=== PATIENT | male | born 1990 | race Caucasian/White ===

== ENCOUNTER 2018-09-20 12:38 | Emergency (ER) | payer OTHER ==
[2018-09-20 12:42] VITALS: RESP 18
[2018-09-20] MEDS ORDERED: SODIUM CHLORIDE 0.9% 1,000 ML IV STA (13:08)
--- NOTE | 2018-09-20 13:32 | ED ---
Abdominal Pain HPI - General Chief Complaint: Abdominal Pain Stated Complaint: Poss hernia Time Seen by Provider: 09/20/18 12:46 Source: patient, RN notes reviewed Mode of arrival: ambulatory Limitations: no limitations - History of Present Illness Initial Comments: 28-year-old male presents emergency Department with chief complaint of right groin pain, right lower abdominal pain. Patient states she has to sit decided of the pain is much worse at the site. Patient states that he believes he has a hernia. He has no dysuria no hematuria he's had ongoing chronic diarrhea which she's never been evaluated for. Patient states she's had no fevers chills no nausea vomiting chest pain or shortness breath. Patient was concern of the pain was worse than ever been today and is improved at this time though - Related Data Home Medications Medication Instructions Recorded Confirmed No Known Home Medications 09/20/18 09/20/18 Allergies Allergy/AdvReac Type Severity Reaction Status Date / Time No Known Allergies Allergy Verified 09/20/18 13:06 Review of Systems ROS Statement: Those systems with pertinent positive or pertinent negative responses have been documented in the HPI. ROS Other: All systems not noted in ROS Statement are negative. Past Medical History Past Medical History: No Reported History History of Any Multi-Drug Resistant Organisms: None Reported Past Surgical History: No Surgical Hx Reported Past Psychological History: ADD/ADHD Smoking Status: Current every day smoker Past Alcohol Use History: None Reported Past Drug Use History: Marijuana General Exam Limitations: no limitations General appearance: alert, in no apparent distress Head exam: Present: atraumatic, normocephalic, normal inspection Neck exam: Present: normal inspection. Absent: tenderness, meningismus, lymphad enopathy Respiratory exam: Present: normal lung sounds bilaterally. Absent: respiratory distress, wheezes, rales, rhonchi, stridor Cardiovascular Exam: Present: regular rate, normal rhythm, normal heart sounds. Absent: systolic murmur, diastolic murmur, rubs, gallop, clicks GI/Abdominal exam: Present: soft, tenderness, normal bowel sounds. Absent: distended, guarding, rebound, rigid Back exam: Absent: CVA tenderness (R), CVA tenderness (L) Neurological exam: Present: alert, oriented X3, CN II-XII intact Skin exam: Present: warm, dry, intact, normal color. Absent: rash Course Vital Signs 09/20/18 09/20/18 12:39 13:57 Temperature 97.5 F L Pulse Rate 91 75 Respiratory 18 18 Rate Blood Pressure 117/82 115/76 O2 Sat by Pulse 98 98 Oximetry Medical Decision Making - Medical Decision Making 28-year-old male presented for right lower abdominal pain. Patient did have labs and CT CT shows evidence of inguinal hernia only containing fat this time. Patient CT does not reveal any evidence of acute sinusitis. Patient will be discharged with follow-up with surgery return parameters were discussed. - Lab Data Result diagrams: 09/20/18 13:25 09/20/18 13:25 Lab Results 09/20/18 09/20/18 Range/Units 13:25 13:25 WBC 7.9 (3.8-10.6) k/uL RBC 5.08 (4.30-5.90) m/uL Hgb 14.9 (13.0-17.5) gm/dL Hct 42.9 (39.0-53.0) % MCV 84.5 (80.0-100.0) fL MCH 29.3 (25.0-35.0) pg MCHC 34.7 (31.0-37.0) g/dL RDW 13.9 (11.5-15.5) % Plt Count 147 L (150-450) k/uL Neutrophils % 73 % Lymphocytes % 17 % Monocytes % 6 % Eosinophils % 2 % Basophils % 0 % Neutrophils # 5.7 (1.3-7.7) k/uL Lymphocytes # 1.4 (1.0-4.8) k/uL Monocytes # 0.5 (0-1.0) k/uL Eosinophils # 0.2 (0-0.7) k/uL Basophils # 0.0 (0-0.2) k/uL Sodium 139 (137-145) mmol/L Potassium 4.2 (3.5-5.1) mmol/L Chloride 107 (98-107) mmol/L Carbon Dioxide 24 (22-30) mmol/L Anion Gap 8 mmol/L BUN 10 (9-20) mg/dL Creatinine 0.87 (0.66-1.25) mg/dL Est GFR (CKD-EPI)AfAm >90 (>60 ml/min/1.73 sqM) Est GFR (CKD-EPI)NonAf >90 (>60 ml/min/1.73 sqM) Glucose 100 H (74-99) mg/dL Calcium 9.4 (8.4-10.2) mg/dL Total Bilirubin 0.6 (0.2-1.3) mg/dL AST 21 (17-59) U/L ALT 22 (21-72) U/L Alkaline Phosphatase 68 (38-126) U/L Total Protein 6.7 (6.3-8.2) g/dL Albumin 4.3 (3.5-5.0) g/dL Lipase 116 (23-300) U/L Disposition Clinical Impression: Right inguinal hernia Disposition: HOME SELF-CARE Condition: Stable Instructions (If sedation given, give patient instructions): Inguinal Hernia (ED) Additional Instructions: Please return to the Emergency Department if symptoms worsen or any other concerns. Is patient prescribed a controlled substance at d/c from ED?: No Referrals: Romulo Cooney MD [STAFF PHYSICIAN] - 1-2 days Time of Disposition: 14:36
[2018-09-20 13:45] LABS: ALT 22 U/L (21-72); AST 21 U/L (17-59); African American GFR (CKD) >90 (>60 ml/min/1.73 sqM); Albumin 4.3 g/dL (3.5-5.0); Alkaline Phosphatase 68 U/L (38-126); Anion Gap 8 mmol/L; Blood Urea Nitrogen 10 mg/dL (9-20); Calcium 9.4 mg/dL (8.4-10.2); Carbon Dioxide 24 mmol/L (22-30); Chloride 107 mmol/L (98-107); Glucose 100 mg/dL (74-99); Lipase 116 U/L (23-300); Potassium 4.2 mmol/L (3.5-5.1); Sodium 139 mmol/L (137-145); Total Bilirubin 0.6 mg/dL (0.2-1.3); Total Protein 6.7 g/dL (6.3-8.2)
[2018-09-20 13:50] LABS: Basophils % (A) 0 %; Eosinophils # (A) 0.2 k/uL (0-0.7); Eosinophils % (A) 2 %; HCT 42.9 % (39.0-53.0); HGB 14.9 gm/dL (13.0-17.5); Lymphocytes # (A) 1.4 k/uL (1.0-4.8); Lymphocytes % (A) 17 %; MCH 29.3 pg (25.0-35.0); MCHC 34.7 g/dL (31.0-37.0); MCV 84.5 fL (80.0-100.0); Mean Platelet Volume 9.8; Monocytes # (A) 0.5 k/uL (0-1.0); Monocytes % (A) 6 %; Neutrophils # (A) 5.7 k/uL (1.3-7.7); Neutrophils % (A) 73 %; Platelet Count 147 k/uL (150-450); RBC 5.08 m/uL (4.30-5.90); RDW 13.9 % (11.5-15.5); WBC 7.9 k/uL (3.8-10.6)
--- NOTE | 2018-09-20 14:27 | CT ---
EXAMINATION TYPE: CT abdomen pelvis w con DATE OF EXAM: 09/20/2018 COMPARISON: None INDICATION: Right sided bulging and bowel changes DLP: 780.1 mGycm, Automated exposure control for dose reduction was used. CONTRAST: 100 mL of Isovue 300. Study performed without Oral Contrast TECHNIQUE: Axial images were obtained from above the diaphragm to the pubic rami in the axial plane a t 5 mm thick sections. Reconstructed images are reviewed on the computer in the coronal plane. FINDINGS: Limited CT sections are obtained the lung bases. The lung bases are clear. CT ABDOMEN: Liver: There is a 1.1 cm cyst measuring 1 Hounsfield unit and lateral margin of the left lobe liver. Within the posterior caudate head is a 1.1 cm cyst measuring 11 Hounsfield units. Spleen: Normal Pancreas: Normal Adrenal glands: The adrenal glands are normal. Gallbladder: Normal Kidneys: No masses are evident. No hydronephrosis is present. No cysts are present. Delayed images were obtained through the kidneys, which remain unremarkable. Aorta: Normal Inferior vena cava: Normal. CT PELVIS: Soft fat extends into the right inguinal ring. No loops of bowel are evident. Loops of bowel within the abdomen and pelvis are normal. This study is performed in lateral contr ast limiting bowel evaluation. Appendix: Normal as visualized. Urinary bladder: Normal. Genitourinary structures: Osseous structures: No suspicious lytic or sclerotic lesions. IMPRESSIONS: 1. Small fat-containing right inguinal hernia 2. Hepatic cysts
[2018-09-20 14:52] LABS: Appearance,Urine Clear (Clear); Bilirubin,Urine Negative (Negative); Blood,Urine Negative (Negative); Color,Urine Light Yellow; Glucose,Urine (UA) Negative (Negative); Ketones,Urine Negative (Negative); Leukocyte Esterase,Urine Negative (Negative); Nitrite,Urine Negative (Negative); PH, Urine 6.5 (5.0-8.0); Protein,Urine Negative (Negative); Specific Gravity,Urine 1.035 (1.001-1.035); Urobilinogen,Urine <2.0 mg/dL (<2.0)
[2018-09-20 15:01] VITALS: BP 110/72; PULSE 71; TEMP 98.4
== END 2018-09-20 15:00 | disposition home or self-care (01) ==
LOC: EC 12:38
DX: K40.90 Unilateral inguinal hernia, without obstruction or gangrene, not specified as recurrent (principal); K52.9 Noninfective gastroenteritis and colitis, unspecified; F17.200 Nicotine dependence, unspecified, uncomplicated
CPT/HCPCS: 36415; 80053; 83690; 85025; 81003; 74177; 99284; 96360; Q9967

== ENCOUNTER 2019-03-09 00:11 | Emergency (ER) | payer OTHER ==
--- NOTE | 2019-03-09 00:42 | ED ---
Chest Pain HPI - General Stated Complaint: Chest Pain Time Seen by Provider: 03/09/19 00:20 - History of Present Illness Initial Comments: This patient is a 28-year-old man who presents as a transfer from [facility]. The patient had gone there tonight to be seen about pain to the chest, just to the left of his sternum area he states that he has been having episodes of pain like this going back approximately one month now. He describes the pain as a tight feeling. He states that tonight it was moderate intensity. The pain is intermittent, and he states that it lasts a variable amount of time when it comes on from minutes to hours. The patient had gone to [facility] on March 05 for similar pain, he had a workup there that included EKG, chest x-ray, and 2 sets of troponins that were negative. The patient went home, but when factor tonight when the pain came on again. The patient had workup there which again had negative cardiac enzymes but he did have relief of his symptoms with sublingual nitroglycerin, and he is transferred here to have admission for cardiology consultation. When I interview the patient, he does not have any symptoms. Patient denies any anginal type symptoms, no dyspnea, diaphoresis, nausea or vomiting, palpitations, lightheadedness or syncope. The patient states that he had quit smoking 1 week ago prior to that he was smoking approximately half pack of cigarettes per day. Patient denies family history of any cardiac disease. MD Complaint: chest pain Onset/Timin -: month(s) Onset: during rest Pain Location: substernal, left chest Pain Radiation: LUE Severity: moderate Quality: tightness Consistency: intermittent Improves With: nitroglycerin Worsens With: nothing Treatments Prior to Arrival: aspirin, nitroglycerin, oxygen - Related Data Home Medications Medication Instructions Recorded Confirmed No Known Home Medications 09/20/18 09/20/18 Allergies Allergy/AdvReac Type Severity Reaction Status Date / Time No Known Allergies Allergy Verified 09/20/18 13:06 Review of Systems ROS Statement: Those systems with pertinent positive or pertinent negative responses have been documented in the HPI. ROS Other: All systems not noted in ROS Statement are negative. Constitutional: Denies: fever, chills Respiratory: Denies: cough, dyspnea Cardiovascular: Reports: as per HPI, chest pain. Denies: palpitations, orthopnea, edema, syncope Gastrointestinal: Denies: abdominal pain, nausea, vomiting Genitourinary: Denies: dysuria, hematuria Musculoskeletal: Denies: back pain Skin: Denies: rash Neurological: Denies: headache, weakness, numbness EKG Findings - EKG Results: EKG: interpreted by KVNG, sinus rhythm (Rate 77 bpm), normal axis, normal QRS, normal ST/T Past Medical History Past Medical History: No Reported History History of Any Multi-Drug Resistant Organisms: None Reported Past Surgical History: No Surgical Hx Reported Past Psychological History: ADD/ADHD Smoking Status: Current every day smoker Past Alcohol Use History: None Reported Past Drug Use History: Marijuana General Exam General appearance: alert, in no apparent distress Head exam: Present: atraumatic, normocephalic Eye exam: Present: normal appearance ENT exam: Present: normal oropharynx Respiratory exam: Present: normal lung sounds bilaterally. Absent: respiratory distress, wheezes, rales, rhonchi, stridor, chest wall tenderness, accessory muscle use Cardiovascular Exam: Present: regular rate, normal rhythm, normal heart sounds. Absent: systolic murmur, diastolic murmur, rubs, gallop GI/Abdominal exam: Present: soft. Absent: distended, tenderness, guarding, rigid, mass Extremities exam: Present: normal inspection, normal capillary refill. Absent: pedal edema, calf tenderness Back exam: Present: normal inspection. Absent: CVA tenderness (R), CVA tenderness (L) Neurological exam: Present: alert Skin exam: Present: warm, dry, intact, normal color. Absent: rash Course Vital Signs 03/09/19 00:41 Temperature 98.7 F Pulse Rate 80 Respiratory 18 Rate Blood Pressure 109/69 O2 Sat by Pulse 98 Oximetry Disposition Clinical Impression: Chest pain Disposition: HOME SELF-CARE Condition: Good Instructions (If sedation given, give patient instructions): Chest Pain (ED) Is patient prescribed a controlled substance at d/c from ED?: No Referrals: Nonstaff,Physician [REFERRING] - 1-2 days Ravinder Abraham MD [STAFF PHYSICIAN] - 1-2 days
[2019-03-09 00:43] VITALS: RESP 18; TEMP 98.7
[2019-03-09 02:05] VITALS: BP 113/75; PULSE 85
== END 2019-03-09 02:00 | disposition home or self-care (01) ==
LOC: EC 00:11
DX: R07.9 Chest pain, unspecified (principal); F17.200 Nicotine dependence, unspecified, uncomplicated
CPT/HCPCS: 36415; 84484; 93005; 99285

== ENCOUNTER 2019-03-11 18:06 | Observation (INO) | payer OTHER ==
--- NOTE | 2019-03-11 18:27 | ED ---
Chest Pain HPI - General Chief Complaint: Chest Pain Stated Complaint: chest pain Time Seen by Provider: 03/11/19 18:14 Source: patient, RN notes reviewed, old records reviewed Mode of arrival: ambulatory Limitations: no limitations - History of Present Illness Initial Comments: This is a 28-year-old male here for evaluation presents for recurrent evaluation of chest pain. Patient has recent history of chest pain and evaluation multiple different ERs as well as observation for cardiac evaluation he did not stay for cardiac evaluation left prior to evaluation. Also last week. Patient currently is again having chest pain left sided chest pain with nausea dizziness and shortness of breath. Jaw pain left arm pain MD Complaint: chest pain -: days(s) Onset: during rest, during exertion Pain Location: left chest Pain Radiation: LUE, jaw/teeth Severity: moderate Severity scale (1-10): 4 Quality: tightness, heaviness Consistency: intermittent Improves With: nothing Worsens With: nothing Anginal Symptoms: diaphoresis, dyspnea Treatments Prior to Arrival: none - Related Data Home Medications Medication Instructions Recorded Confirmed No Known Home Medications 09/20/18 09/20/18 Allergies Allergy/AdvReac Type Severity Reaction Status Date / Time No Known Allergies Allergy Verified 03/11/19 18:08 Review of Systems ROS Statement: Those systems with pertinent positive or pertinent negative responses have been documented in the HPI. ROS Other: All systems not noted in ROS Statement are negative. EKG Findings - EKG Comments: EKG Findings:: EKG shows sinus rhythm rate of 82, NC 164, QRS 90, QTC 401 Past Medical History Past Medical History: Chest Pain / Angina History of Any Multi-Drug Resistant Organisms: None Reported Past Surgical History: No Surgical Hx Reported Past Psychological History: ADD/ADHD Smoking Status: Former smoker Past Alcohol Use History: None Reported Past Drug Use History: Marijuana General Exam Limitations: no limitations General appearance: alert, in no apparent distress Head exam: Present: atraumatic, normocephalic, normal inspection Eye exam: Present: normal appearance, PERRL, EOMI. Absent: scleral icterus, conjunctival injection, periorbital swelling ENT exam: Present: normal exam, mucous membranes moist Neck exam: Present: normal inspection. Absent: tenderness, meningismus, lymphadenopathy Respiratory exam: Present: normal lung sounds bilaterally. Absent: respiratory distress, wheezes, rales, rhonchi, stridor Cardiovascular Exam: Present: regular rate, normal rhythm, normal heart sounds. Absent: systolic murmur, diastolic murmur, rubs, gallop, clicks GI/Abdominal exam: Present: soft, normal bowel sounds. Absent: distended, tenderness, guarding, rebound, rigid Extremities exam: Present: normal inspection, full ROM, normal capillary refill. Absent: tenderness, pedal edema, joint swelling, calf tenderness Back exam: Present: normal inspection Neurological exam: Present: alert, oriented X3, CN II-XII intact Psychiatric exam: Present: normal affect, normal mood Skin exam: Present: warm, dry, intact, normal color. Absent: rash Course Vital Signs 03/11/19 18:08 Temperature 98 F Pulse Rate 55 L Respiratory 18 Rate Blood Pressure 134/80 O2 Sat by Pulse 97 Oximetry - Reevaluation(s) Reevaluation #1: 03/11/19 18:25 Medical record is reviewed Reevaluation #2: 03/11/19 18:25 Patient is in no acute distress, patient does have recent evaluation both that make urine and then was transferred from [facility] for cardiac observation patient signed out prior to stress test Reevaluation #3: 03/11/19 18:26 Patient is currently without any chest pain - Consultations Consultation #1: spoke w Dr Russ zheng for admission Chest Pain MDM - MDM 28 male will be admitted for observation cardiac observation, patient with continued pain Disposition Clinical Impression: Chest pain Disposition: ADMITTED IP TO THIS HOSP Condition: Undetermined Instructions (If sedation given, give patient instructions): Chest Pain (ED) Is patient prescribed a controlled substance at d/c from ED?: No Referrals: Abhishek Boothe MD [Primary Care Provider] - 1-2 days
[2019-03-11] MEDS ORDERED: NITROGLYCERIN SL TABS 0.4 MG TAB SUBLINGUAL PRN (18:48)
[2019-03-11 19:13] LABS: Basophils % (A) 0 %; Eosinophils # (A) 0.2 k/uL (0-0.7); Eosinophils % (A) 3 %; HCT 41.7 % (39.0-53.0); HGB 14.6 gm/dL (13.0-17.5); Lymphocytes # (A) 1.3 k/uL (1.0-4.8); Lymphocytes % (A) 24 %; MCH 30.1 pg (25.0-35.0); MCHC 34.9 g/dL (31.0-37.0); MCV 86.2 fL (80.0-100.0); Mean Platelet Volume 9.4; Monocytes # (A) 0.3 k/uL (0-1.0); Monocytes % (A) 6 %; Neutrophils # (A) 3.5 k/uL (1.3-7.7); Neutrophils % (A) 65 %; Platelet Count 168 k/uL (150-450); RBC 4.84 m/uL (4.30-5.90); WBC 5.4 k/uL (3.8-10.6)
[2019-03-11 19:26] LABS: INR 0.9 (<1.2); Partial Thromboplastin Time 23.6 sec (22.0-30.0); Prothrombin Time 10.1 sec (9.0-12.0)
[2019-03-11 19:28] LABS: ALT 22 U/L (4-49); AST 23 U/L (17-59); African American GFR (CKD) >90 (>60 ml/min/1.73 sqM); Albumin 4.4 g/dL (3.5-5.0); Alkaline Phosphatase 78 U/L (38-126); Anion Gap 9 mmol/L; Blood Urea Nitrogen 18 mg/dL (9-20); Calcium 9.6 mg/dL (8.4-10.2); Carbon Dioxide 25 mmol/L (22-30); Chloride 104 mmol/L (98-107); Glucose 148 mg/dL (74-99); Magnesium 2.1 mg/dL (1.6-2.3); Non-African American GFR(CKD) >90 (>60 ml/min/1.73 sqM); Potassium 3.7 mmol/L (3.5-5.1); Sodium 138 mmol/L (137-145); Total Bilirubin 0.5 mg/dL (0.2-1.3); Total Protein 6.9 g/dL (6.3-8.2)
[2019-03-11] MEDS: SODIUM CHLORIDE 0.9% 1,000 ML IV SCH (22:05)
[2019-03-12] MEDS: SODIUM CHLORIDE 0.9% 1,000 ML IV SCH (05:39)
[2019-03-12 07:06] VITALS: RESP 18
[2019-03-12 07:39] LABS: Cholesterol 167 mg/dL (<200); HDL Cholesterol 50 mg/dL (40-60); LDL Cholesterol,Calculated 93 mg/dL (0-99); Triglycerides 118 mg/dL (<150)
--- NOTE | 2019-03-12 08:49 | XR ---
EXAMINATION TYPE: XR chest 2V DATE OF EXAM: 03/12/2019 COMPARISON: 03/08/2019 HISTORY: 28-year-old male with chest pain TECHNIQUE: PA and lateral views FINDINGS: The cardiomediastinal silhouette, aorta, and pulmonary vasculature are within normal limits. Lungs an d pleural spaces are clear. IMPRESSION: No acute cardiopulmonary process.
[2019-03-12] MEDS ORDERED: ATORVASTATIN 80 MG TAB PO SCH (09:00)
[2019-03-12] MEDS ORDERED: ASPIRIN 325 MG TAB PO SCH (09:00)
[2019-03-12 12:04] VITALS: BP 126/77; PULSE 69; TEMP 97.9
--- NOTE | 2019-03-12 13:38 | ECHOF ---
Referral Reason:cp MEASUREMENTS -------- HEIGHT: 170.2 cm WEIGHT: 77.1 kg BP: RVIDd: 2.6 cm (< 3.3) IVSd: 1.1 cm (0.6 - 1.1) LVIDd: 3.5 cm (3.9 - 5.3) LVPWd: 1.2 cm (0.6 - 1.1) IVSs: 1.7 cm LVIDs: 1.5 cm LVPWs: 1.8 cm Ao Diam: 3.0 cm (2.0 - 3.7) AV Cusp: 2.3 cm (1.5 - 2.6) LA Diam: 2.7 cm (2.7 - 3.8) MV EXCURSION: 12.148 mm (> 18.000) MV EF SLOPE: 92 mm/s (70 - 150) EPSS: 0.2 cm MV E Charles: 0.83 m/s MV DecT: 201 ms MV A Charles: 0.43 m/s MV E/A Ratio: 1.92 RAP: 5.00 mmHg RVSP: 12.51 mmHg FINDINGS -------- Sinus rhythm. This was a technically good study. The left ventricular size is normal. There is mild concentric left ventricular hypertrophy. Overa ll left ventricular systolic function is normal with, an EF between 55 - 60 %. The diastolic fillin g pattern is normal for the age of the patient 9.37. The right ventricle is normal in size. The left atrial size is normal. The right atrial size is normal. The aortic valve is trileaflet and appears structurally normal. The mitral valve is normal. The mitral valve leaflets are mildly thickened. There is trace mitral regurgitation. The tricuspid valve appears structurally normal. Trace tricuspid regurgitation present. Right izzy tricular systolic pressure is normal at < 35 mmHg. There is no pulmonic regurgitation present. The aortic root size is normal. Normal inferior vena cava with normal inspiratory collapse consistent with estimated right atrial pre ssure of 5 mmHg. There is no pericardial effusion. CONCLUSIONS -------- 1. Sinus rhythm. 2. This was a technically good study. 3. The left ventricular size is normal. 4. There is mild concentric left ventricular hypertrophy. 5. Overall left ventricular systolic function is normal with, an EF between 55 - 60 %. 6. The diastolic filling pattern is normal for the age of the patient 9.37 7. The right ventricle is normal in size. 8. The left atrial size is normal. 9. The right atrial size is normal. 10. The aortic valve is trileaflet and appears structurally normal. 11. The mitral valve is normal. 12. The mitral valve leaflets are mildly thickened. 13. There is trace mitral regurgitation. 14. The tricuspid valve appears structurally normal. 15. Trace tricuspid regurgitation present. 16. Right ventricular systolic pressure is normal at < 35 mmHg. 17. There is no pulmonic regurgitation present. 18. The aortic root size is normal. 19. Normal inferior vena cava with normal inspiratory collapse consistent with estimated right atrial pressure of 5 mmHg. 20. There is no pericardial effusion. AGRICULTURAL RESEARCH TECHNOLOGIST: Amarilis Melvin RDCS
[2019-03-12] MEDS ORDERED: PANTOPRAZOLE 40 MG TABLET PO STA ×2 (14:45→14:51)
--- NOTE | 2019-03-12 15:39 | CONS ---
CONSULTATION CHIEF COMPLAINT: Chest pain. Lico is a 28-year-old gentleman with no significant past medical history who presents to hospital complaining of chest pain. He describes it as intermittent episodes of precordial chest pressure with left arm discomfort that usually lasts for a minute or two and then resolves on its own. It is mild intensity, unrelated to exertion, associated with diaphoresis. There were no clear-cut relieving or exacerbating factors. Since being admitted, he has had similar symptoms. EKG did not reveal any ischemic changes and cardiac enzymes have been negative. 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 I obtained a D- dimer on him that is within normal limits. I am going to obtain a 2D echo to assess LV function and wall motion. If this workup is unremarkable, he can be discharged home and have an outpatient stress test. PAST MEDICAL HISTORY: Negative for hypertension, diabetes, dyslipidemia. MEDICATIONS: Include aspirin. ALLERGIES: No known drug allergies. FAMILY HISTORY: Significant for premature coronary artery disease. SOCIAL HISTORY: Significant for smoking. There is no history of EtOH abuse or drug abuse. REVIEW OF SYSTEMS: HEENT: Unremarkable. CARDIAC: As described above. RESPIRATORY: Negative. GI: Negative. GENITOURINARY: Negative. ALLERGY/IMMUNOLOGY: Negative. SKIN: Negative. MUSCULOSKELETAL: Significant for history of hernia surgery 5 months ago. PSYCHOSOCIAL: Negative. ENDOCRINE: Negative. DERM: Negative. CONSTITUTIONAL: Negative. ONCOLOGICAL: Negative. Rest of the system review is not relevant. On exam, patient is comfortable at rest. Vital signs are stable. There is no jugular venous distention. Carotid upstroke is normal. There is no bruit. Chest exam reveals good air entry bilaterally. Heart exam reveals first and second heart sounds. No gallop. No murmur. No rub. Abdomen is soft, nontender. Exam of extremities did not reveal any edema. Peripheral pulses are felt. ELECTRIC RANGE PREPARER exam did not reveal focal neurological deficits. LABS: Show a hemoglobin of 14.6, platelet count is 168, potassium is 3.7, creatinine is 1. Three sets of troponins are negative. LDL is 93. ASSESSMENT: Chest pain, atypical in nature. Myocardial infarction is ruled out. EKG looks normal. I will ambulate the patient and if he is free of symptoms, he can be discharged home and arrange for an outpatient stress test. I will do an echo on him on this admission. MMODL / IJN: [id number] /
--- NOTE | 2019-03-12 17:39 | P.HPIM ---
History of Present Illness H&P Date: 03/12/19 Chief Complaint: Chest pain Patient is a 28-year-old male with a known history of ADD/ADHD, previous history of smoking, marijuana use and recent history of hernia repair about few months back came to ER the complains of chest pain. Chest pain is mainly left upper retrosternal and radiating up to the left shoulder. No associated nausea vomiting. Patient says that she does have shortness of breath along with the pain. Pain is on and off pressure-like sensation. No diaphoresis. Denied any history of prior coronary artery disease. Patient thought he has been having heart problems and started taking aspirin daily. Denied any cough or sputum production. No fever no chills. Patient does smoke an daily basis otherwise. He does use marijuana as well. Chest x-ray showed no acute cardio pulmonary process All other laboratory data reviewed. No leukocytosis. D-dimer is not elevated. Troponin 3 negative EKG showed normal sinus rhythm. No ST-T wave changes. Patient has recent history of chest pain and evaluation multiple different ERs as well as observation for cardiac evaluation he did not stay for cardiac evaluation left prior to evaluation Review of Systems Constitutional: Patient denies any fever or chills . No generalized weakness or weight loss. Abdomen: Patient denied nausea vomiting and diarrhea and abdominal pain. Cardiovascular: Patient does have chest pain and short of breath no palpitatio ns. Respiratory: patient denied any cough is from production. No shortness of breath Neurologic: Patient denied any numbness or tingling headache. Musculoskeletal: Patient denies any complaints of joint swelling or deformity. Skin: Negative Psychiatric: Negative Endocrine: No heat or cold intolerance. No recent weight gain. Genitourinary: No dysuria or hematuria. All other 14 point ROS negative except the above Past Medical History Past Medical History: Chest Pain / Angina History of Any Multi-Drug Resistant Organisms: None Reported Past Surgical History: Hernia Repair Additional Past Surgical History / Comment(s): Hernia repair with mesh Past Anesthesia/Blood Transfusion Reactions: No Reported Reaction Past Psychological History: ADD/ADHD Smoking Status: Former smoker Past Alcohol Use History: None Reported Past Drug Use History: Marijuana Medications and Allergies Home Medications Medication Instructions Recorded Confirmed Type Aspirin EC [Ecotrin Low Dose] 81 mg PO DAILY 03/11/19 03/11/19 History Pantoprazole Sodium [Protonix] 40 mg PO -PIAT #30 tablet.dr 03/12/19 Rx Allergies Allergy/AdvReac Type Severity Reaction Status Date / Time No Known Allergies Allergy Verified 03/11/19 19:49 Physical Exam Vitals: Vital Signs Temp Pulse Pulse Resp BP BP Pulse Ox 03/12/19 08:00 77 18 03/12/19 07:05 97.5 F L 77 18 117/77 98 03/12/19 04:00 98.0 F 73 16 122/79 100 03/12/19 03:46 84 15 03/11/19 23:45 98.2 F 84 16 124/78 98 03/11/19 21:32 98.0 F 82 17 134/93 98 03/11/19 20:30 17 03/11/19 19:54 98.0 F 87 18 116/93 96 03/11/19 18:08 98 F 55 L 18 134/80 97 Intake and Output 03/11/19 03/12/19 03/12/19 22:59 06:59 14:59 Intake Total 480 240 Balance 480 240 Intake: Oral 480 240 Other: Voiding Method Toilet # Voids 1 Weight 77.111 kg PHYSICAL EXAMINATION: Patient is lying in the bed comfortably, no acute distress, awake alert and oriented.. HEENT: Normocephalic. Neck is supple. Pupils reactive. Nostrils clear. Oral cavi ty is moist. Ears reveal no drainage. Neck reveals no JVD, carotid bruits, or thyromegaly. CHEST EXAMINATION: Trachea is central. Symmetrical expansion. Lung pereira clear to auscultation and percussion. Denied any chest wall tenderness. CARDIAC: Normal S1, S2 with no gallops. No murmurs ABDOMEN: Soft. Bowel sounds normal. No organomegaly. No abdominal bruits. Extremities: reveal no edema. No clubbing or cyanosis Neurologically awake, alert, oriented x3 with well-coordinated movements. No focal deficits noted Skin: No rash or skin lesions. Psychiatric: Coperative. Nonsuicidal Musculoskeletal: No joint swelling or deformity. Normal range of motion. Results CBC & Chem 7: 03/11/19 18:58 03/11/19 18:58 Labs: Abnormal Lab Results - Last 24 Hours (Table) 03/11/19 Range/Units 18:58 Glucose 148 H (74-99) mg/dL Thrombosis Risk Factor Assmnt - DVT/VTE Prophylaxis DVT/VTE Prophylaxis: Pharmacologic Prophylaxis ordered - Choose All That Apply Any of the Below Risk Factors Present?: No Other Risk Factors: No Other congenital or acquired thrombophilia - If yes, enter type in comment: No Thrombosis Risk Factor Assessment Level: Very Low Risk Assessment and Plan Assessment: Atypical chest pain. Ruled out acute coronary syndrome. Ongoing nicotine addiction and marijuana use ADD/ADHD Recent history of hernia repair. DVT prophylaxis Plan: Next and patient be continued on telemetry monitoring. Serial EKG and troponin 3 negative. D-dimer is not elevated. 2-D echocardiogram was ordered. Showed no pericardial effusion heart acute pericarditis. Patient will be started on Protonix and that must follow-up as an outpatient. Currently patient denied any complaints of chest pain. Smoking cessation and marijuana use has been counseled extensively. Time with Patient: Greater than 30
--- NOTE | 2019-03-12 17:42 | P.DS ---
Providers Date of admission: 03/11/19 18:50 Expected date of discharge: 03/12/19 Attending physician: Patricia Karimi Consults: 03/11/19 18:48 Consult Physician Urgent Consulting Provider: Flakita Downing Consult Reason/Comments: cp Do you want consulting provider notified?: Yes Primary care physician: Abhishek Boothe Hospital Course: Discharge diagnosis Atypical chest pain. Ruled out acute coronary syndrome. Possible gastritis versus GERD Ongoing nicotine addiction and marijuana use ADD/ADHD Recent history of hernia repair. DVT prophylaxis Hospital course Patient is a 28-year-old male with a known history of ADD/ADHD, previous history of smoking, marijuana use and recent history of hernia repair about few months back came to ER the complains of chest pain. Chest pain is mainly left upper retrosternal and radiating up to the left shoulder. No associated nausea vomiting. Patient says that she does have shortness of breath along with the pain. Pain is on and off pressure-like sensation. No diaphoresis. Denied any history of prior coronary artery disease. Patient thought he has been having heart problems and started taking aspirin daily. Denied any cough or sputum production. No fever no chills. Patient does smoke an daily basis otherwise. He does use marijuana as well. Chest x-ray showed no acute cardio pulmonary process All other laboratory data reviewed. No leukocytosis. D-dimer is not elevated. Troponin 3 negative EKG showed normal sinus rhythm. No ST-T wave changes. Patient has recent history of chest pain and evaluation multiple different ERs as well as observation for cardiac evaluation he did not stay for cardiac evaluation left prior to evaluation. patient was continued on telemetry monitoring. Serial EKG and troponin 3 negative. D-dimer is not elevated. 2-D echocardiogram was ordered. Showed no pericardial effusion heart acute pericarditis. Patient will be started on Protonix and that must follow-up as an outpatient. Currently patient denied any complaints of chest pain. Smoking cessation and marijuana use has been counseled extensively. PHYSICAL EXAMINATION: Patient is lying in the bed comfortably, no acute distress, awake alert and oriented.. HEENT: Normocephalic. Neck is supple. Pupils reactive. Nostrils clear. Oral cavity is moist. Ears reveal no drainage. Neck reveals no JVD, carotid bruits, or thyromegaly. CHEST EXAMINATION: Trachea is central. Symmetrical expansion. Lung pereira clear to auscultation and percussion. CARDIAC: Normal S1, S2 with no gallops. No murmurs ABDOMEN: Soft. Bowel sounds normal. No organomegaly. No abdominal bruits. Extremities: reveal no edema. No clubbing or cyanosis Neurologically awake, alert, oriented x3 with well-coordinated movements. No focal deficits noted Skin: No rash or skin lesions. Psychiatric: Coperative. Nonsuicidal Musculoskeletal: No joint swelling or deformity. Normal range of motion. Vital Signs 03/12/19 03/12/19 11:57 12:00 Temperature 97.9 F Pulse Rate [ 77 69 Right] Respiratory 18 18 Rate Blood Pressure 126/77 [Right Arm] O2 Sat by Pulse 98 Oximetry Patient Condition at Discharge: Undetermined Plan - Discharge Summary Discharge Rx Participant: No New Discharge Prescriptions: New Pantoprazole Sodium [Protonix] 40 mg PO AC-BRKFST #30 tablet. Continue Aspirin EC [Ecotrin Low Dose] 81 mg PO DAILY Discharge Medication List Aspirin EC [Ecotrin Low Dose] 81 mg PO DAILY 03/11/19 [History] Pantoprazole Sodium [Protonix] 40 mg PO AC-BRKFST #30 tablet. 03/12/19 [Rx] Follow up Appointment(s)/Referral(s): Abihshek Boothe MD [Primary Care Provider] - 1-2 days Patient Instructions/Handouts: Chest Pain (ED) Discharge Disposition: HOME SELF-CARE
== END 2019-03-12 15:20 | disposition home or self-care (01) ==
LOC: EC 18:06 → 1SOBS 18:50
PROVIDERS: ADMIT Hospitalist; ATTEND Hospitalist
DX: R07.89 Other chest pain (principal); F17.200 Nicotine dependence, unspecified, uncomplicated; F12.90 Cannabis use, unspecified, uncomplicated; F90.9 Attention-deficit hyperactivity disorder, unspecified type; I51.7 Cardiomegaly; Z79.82 Long term (current) use of aspirin; Z79.899 Other long term (current) drug therapy; Z98.890 Other specified postprocedural states
CPT/HCPCS: 93005 ×2; 99285; 36415; 93306; 85379; 83880; 80061; 80053; 83735; 84484 ×2; 85025; 85610; 85730; 71046; G0378 ×2

== ENCOUNTER 2021-04-21 15:47 | Emergency (ER) | payer OTHER ==
[2021-04-21 15:52] VITALS: TEMP 97.4
[2021-04-21] MEDS ORDERED: diphenhydrAMINE 50 MG/ML 1 ML VIAL IVP STA (16:02)
[2021-04-21] MEDS ORDERED: ONDANSETRON 4 MG/2 ML VIAL IVP STA (16:02)
[2021-04-21] MEDS ORDERED: SODIUM CHLORIDE 0.9% 1,000 ML IV STA (16:02)
[2021-04-21] MEDS ORDERED: ASPIRIN 81 MG PO STA (16:02)
[2021-04-21] MEDS ORDERED: LIDOCAINE VISCOUS 2% 15 ML CUP MUCOUS MEM ONE (16:18)
[2021-04-21] MEDS: MORPHINE SULFATE 4 MG/ML SYRINGE IV STA ×2 (16:52→17:24)
[2021-04-21 16:55] LABS: ALT 100 U/L (4-49); AST 45 U/L (17-59); African American GFR (CKD) >90 (>60 ml/min/1.73 sqM); Albumin 4.9 g/dL (3.5-5.0); Alkaline Phosphatase 86 U/L (38-126); Amylase 51 U/L (30-110); Anion Gap 9 mmol/L; Blood Urea Nitrogen 15 mg/dL (9-20); Calcium 9.5 mg/dL (8.4-10.2); Carbon Dioxide 24 mmol/L (22-30); Chloride 100 mmol/L (98-107); Glucose 98 mg/dL (74-99); Lipase 44 U/L (23-300); Non-African American GFR(CKD) >90 (>60 ml/min/1.73 sqM); Sodium 133 mmol/L (137-145); Total Bilirubin 1.2 mg/dL (0.2-1.3)
--- NOTE | 2021-04-21 16:56 | XR ---
EXAMINATION TYPE: XR chest 2V DATE OF EXAM: 04/21/2021 COMPARISON: 03/12/2019 HISTORY: Chest pain TECHNIQUE: 2 views FINDINGS: Heart and mediastinum are normal. Lungs are clear. Diaphragm is normal. Bony thorax appears normal. IMPRESSION: Normal chest. No change.
[2021-04-21 16:57] LABS: Basophils % (A) 1 %; Eosinophils # (A) 0.1 k/uL (0-0.7); Eosinophils % (A) 1 %; HCT 47.4 % (39.0-53.0); HGB 16.6 gm/dL (13.0-17.5); INR 0.9 (<1.2); Lymphocytes % (A) 26 %; MCH 30.5 pg (25.0-35.0); MCHC 35.1 g/dL (31.0-37.0); MCV 87.1 fL (80.0-100.0); Mean Platelet Volume 9.8; Monocytes # (A) 0.5 k/uL (0-1.0); Monocytes % (A) 12 %; Neutrophils # (A) 2.3 k/uL (1.3-7.7); Neutrophils % (A) 58 %; Platelet Count 158 k/uL (150-450); Prothrombin Time 10.1 sec (9.0-12.0); RBC 5.45 m/uL (4.30-5.90); RDW 12.2 % (11.5-15.5)
--- NOTE | 2021-04-21 16:57 | ED ---
General Adult HPI - General Chief complaint: Chest Pain Stated complaint: Chest Pain, SOB Time Seen by Provider: 04/21/21 16:02 Source: patient, RN notes reviewed, old records reviewed Mode of arrival: wheelchair Limitations: no limitations - History of Present Illness Initial comments: Patient is a 30-year-old male with past medical history remarkable for chronic chest pain who presents emergency Department complaining of nausea, vomiting as well as chest pain. This all began yesterday. He states he thought he may have received food poisoning. He has been having multiple episodes of nonbilious, be emesis since yesterday. Endorses an episode of diarrhea as well. Endorses a substernal and somewhat left-sided chest pain that is a burning pressure-like sensation. It is worse when he throws up. Denies any cough, fevers, chills, sick contacts. Denies any radiation of the pain. His no other acute complaints at this time. In triage his states that he has had pain extending to his neck and arm, however states it is currently not happening. His no other acute complaints at this time. I evaluated the patient when he was placed in a room. - Related Data Previous Rx's Medication Instructions Recorded Famotidine [Pepcid AC] 10 mg PO DAILY #7 tablet 04/21/21 Ondansetron Odt [Zofran Odt] 4 mg PO Q8HR PRN 2 Days #6 tab 04/21/21 Allergies Allergy/AdvReac Type Severity Reaction Status Date / Time No Known Allergies Allergy Verified 04/21/21 17:35 Review of Systems ROS Statement: Those systems with pertinent positive or pertinent negative responses have been documented in the HPI. Review of Systems: CONST: Denies fever EYES: Denies blurry vision ENT: Denies nasal congestion C/V: Endorses chest pain RESP: Denies shortness of breath GI: Endorses nausea and vomiting, abdominal pain : Denies dysuria SKIN: Denies rash. MSK: Denies joint pain. NEURO: Denies headache ROS Other: All systems not noted in ROS Statement are negative. Past Medical History Past Medical History: Chest Pain / Angina History of Any Multi-Drug Resistant Organisms: None Reported Past Surgical History: Hernia Repair Additional Past Surgical History / Comment(s): Hernia repair with mesh Past Anesthesia/Blood Transfusion Reactions: No Reported Reaction Past Psychological History: ADD/ADHD Smoking Status: Current every day smoker Past Alcohol Use History: None Reported Past Drug Use History: None Reported, Marijuana General Exam - General Exam Comments Initial Comments: General: Appears in no acute distress. HEAD: Normal with no signs of head trauma. EYES: PERRLA, EOMI, conjunctiva normal, no discharge. ENT: Hearing grossly intact, normal oropharynx. RESPIRATORY: Clear breath sounds bilaterally. No wheezes, rales, or rhonchi. C/V: Mildly tachycardic with a regular rhythm on presentation. S1 and S2 auscultated. Peripheral pulses 2+ intact throughout. ABD: Abdomen soft, nondistended. Patient is very mild tenderness to palpation in the epigastric region. No rebound tenderness. No real peritoneal signs. No guarding. EXT: Normal range of motion, no obvious deformity SKIN: No rashes or lesions observed on exposed skin. NEURO: Alert and oriented 4. No focal deficits. Limitations: no limitations Course Vital Signs 04/21/21 15:48 Temperature 97.4 F L Pulse Rate 111 H Respiratory 20 Rate Blood Pressure 123/88 O2 Sat by Pulse 98 Oximetry Medical Decision Making - Medical Decision Making Recent the patient's presentation and physical exam, I'm concerned for possible cardiopulmonary cause for his current symptoms, cannot rule out dehydration, food poisoning, intra-abdominal issues. We will obtain abdominal laboratory studies as well as a cardiopulmonary. I believe one troponin sufficient as symptoms have been ongoing since yesterday. EKG and chest x-ray will also be obtained. He'll be administered symptomatic management with a 1 L fluid bolus, IV Zofran, morphine, viscous lidocaine as well as IV Benadryl and 1 aspirin. He was in agreement with this plan. Patient's EKG showed no signs of acute ischemia. Chest x-ray revealed no acute cardio pulmonary process. Laboratory studies were remarkable for a troponin within normal limits. Covid is negative. Remainder the labs are unremarkable. On reevaluation, patient is feeling better. He is tolerating oral intake. I discussed with him the results of his laboratory studies and imaging. I believe it is safe for him to be discharged home. He was in agreement with this plan. I will provide the patient with a prescription for ODT Zofran, famotidine. I instructed the patient to follow up with their PCP in the next 3 days. I explained that the patient should return to the emergency department if they experience any worsening symptoms. Strict return precautions were discussed with the patient. The patient expressed understanding of these instructions. I answered all questions that the patient had. The patient was discharged home in good condition with their prescriptions and follow up information. - Lab Data Result diagrams: 04/21/21 16:20 04/21/21 16:20 Lab Results 04/21/21 04/21/21 04/21/21 Range/Units 16:20 16:20 16:20 WBC 4.0 (3.8-10.6) k/uL RBC 5.45 (4.30-5.90) m/uL Hgb 16.6 (13.0-17.5) gm/dL Hct 47.4 (39.0-53.0) % MCV 87.1 (80.0-100.0) fL MCH 30.5 (25.0-35.0) pg MCHC 35.1 (31.0-37.0) g/dL RDW 12.2 (11.5-15.5) % Plt Count 158 (150-450) k/uL MPV 9.8 Neutrophils % 58 % Lymphocytes % 26 % Monocytes % 12 % Eosinophils % 1 % Basophils % 1 % Neutrophils # 2.3 (1.3-7.7) k/uL Lymphocytes # 1.0 (1.0-4.8) k/uL Monocytes # 0.5 (0-1.0) k/uL Eosinophils # 0.1 (0-0.7) k/uL Basophils # 0.0 (0-0.2) k/uL PT 10.1 (9.0-12.0) sec INR 0.9 (<1.2) APTT 18.9 L (22.0-30.0) sec Sodium 133 L (137-145) mmol/L Potassium 4.3 (3.5-5.1) mmol/L Chloride 100 (98-107) mmol/L Carbon Dioxide 24 (22-30) mmol/L Anion Gap 9 mmol/L BUN 15 (9-20) mg/dL Creatinine 0.84 (0.66-1.25) mg/dL Est GFR (CKD-EPI)AfAm >90 (>60 ml/min/1.73 sqM) Est GFR (CKD-EPI)NonAf >90 (>60 ml/min/1.73 sqM) Glucose 98 (74-99) mg/dL Calcium 9.5 (8.4-10.2) mg/dL Magnesium 2.0 (1.6-2.3) mg/dL Total Bilirubin 1.2 (0.2-1.3) mg/dL AST 45 (17-59) U/L ALT 100 H (4-49) U/L Alkaline Phosphatase 86 (38-126) U/L Troponin I (0.000-0.034) ng/mL Total Protein 8.0 (6.3-8.2) g/dL Albumin 4.9 (3.5-5.0) g/dL Amylase 51 (30-110) U/L Lipase 44 (23-300) U/L Coronavirus (PCR) (Not Detectd) 04/21/21 04/21/21 Range/Units 16:20 16:59 WBC (3.8-10.6) k/uL RBC (4.30-5.90) m/uL Hgb (13.0-17.5) gm/dL Hct (39.0-53.0) % MCV (80.0-100.0) fL MCH (25.0-35.0) pg MCHC (31.0-37.0) g/dL RDW (11.5-15.5) % Plt Count (150-450) k/uL MPV Neutrophils % % Lymphocytes % % Monocytes % % Eosinophils % % Basophils % % Neutrophils # (1.3-7.7) k/uL Lymphocytes # (1.0-4.8) k/uL Monocytes # (0-1.0) k/uL Eosinophils # (0-0.7) k/uL Basophils # (0-0.2) k/uL PT (9.0-12.0) sec INR (<1.2) APTT (22.0-30.0) sec Sodium (137-145) mmol/L Potassium (3.5-5.1) mmol/L Chloride (98-107) mmol/L Carbon Dioxide (22-30) mmol/L Anion Gap mmol/L BUN (9-20) mg/dL Creatinine (0.66-1.25) mg/dL Est GFR (CKD-EPI)AfAm (>60 ml/min/1.73 sqM) Est GFR (CKD-EPI)NonAf (>60 ml/min/1.73 sqM) Glucose (74-99) mg/dL Calcium (8.4-10.2) mg/dL Magnesium (1.6-2.3) mg/dL Total Bilirubin (0.2-1.3) mg/dL AST (17-59) U/L ALT (4-49) U/L Alkaline Phosphatase (38-126) U/L Troponin I 0.018 (0.000-0.034) ng/mL Total Protein (6.3-8.2) g/dL Albumin (3.5-5.0) g/dL Amylase (30-110) U/L Lipase (23-300) U/L Coronavirus (PCR) Not Detected (Not Detectd) - EKG Data -: EKG Interpreted by Me EKG Comments: 12-lead Electrocardiogram Interpretation Note EKG was reviewed and interpreted by myself. 12-lead ECG performed at 1555 is interpreted by me as revealing normal sinus rhythm at a rate of 89 beats per minute. [place] is normal. HI interval is 165 ms, QRS duration 93 ms, QTc is 381 ms.. There is an isolated T-wave inversion in lead III, and in prior EKGs this was isoelectric.. R wave progression across the precordium was satisfactory. By my interpretation this EKG is non-diagnostic for acute ischemia. Disposition Clinical Impression: Nausea and vomiting, Viral syndrome, Chest pain of unknown etiology Disposition: HOME SELF-CARE Condition: Good Instructions (If sedation given, give patient instructions): Chest Pain (ED), Acute Nausea and Vomiting (ED) Prescriptions: Famotidine [Pepcid AC] 10 mg PO DAILY #7 tablet Ondansetron Odt [Zofran Odt] 4 mg PO Q8HR PRN 2 Days #6 tab PRN Reason: Nausea Is patient prescribed a controlled substance at d/c from ED?: No Referrals: Greg Oates MD [Primary Care Provider] - 1-2 days
[2021-04-21 17:01] LABS: Potassium 4.3 mmol/L (3.5-5.1)
[2021-04-21 17:05] LABS: Partial Thromboplastin Time 18.9 sec (22.0-30.0)
[2021-04-21 19:05] VITALS: BP 125/86; PULSE 80; RESP 18
== END 2021-04-21 19:05 | disposition home or self-care (01) ==
LOC: EC 15:47
DX: R07.89 Other chest pain (principal); B34.9 Viral infection, unspecified; R11.2 Nausea with vomiting, unspecified; F17.200 Nicotine dependence, unspecified, uncomplicated; Z20.822 Contact with and (suspected) exposure to COVID-19
CPT/HCPCS: 36415; 93005; 80053; 82150; 83690; 83735; 84484; 85025; 85610; 85730; 87635; 71046; 99285; 96374; 96375; 96361; J1200; J2405